=== PATIENT | female | born 2000 | race Caucasian/White ===

== ENCOUNTER 2023-06-21 21:43 | Emergency (ER) | payer OTHER, SELFPAY ==
[2023-06-21 22:03] VITALS: BP 116/67; PULSE 78; RESP 17; TEMP 37; O2SAT 100; BMI 32.2
--- NOTE | 2023-06-22 00:09 | ED.EYEPROB ---
HPI - Eye Problem General Chief complaint: Eye Problems Stated complaint: left eye pain,blurriness Time Seen by Provider: 06/21/23 23:56 Source: patient Mode of arrival: ambulatory Limitations: no limitations History of Present Illness HPI Narrative: L eye pain and redness no lens wear x 24 hours came out of nowhere hurts lateral aspect when she moves it no trauma. tried lubricating drops and warm compress has hx of dry eyes. chief complaint: eye pain and eye redness Onset (ago): day(s) (1) Onset description: gradual Duration: intermittent Location: left eye Eye Symptoms: burning, redness and pain Place: home Mechanism: none Severity: mild If Pain, Quality: burning and aching Associated symptoms: none Treatments Prior to Arrival: OTC eye drops Related Data Previous Rx's Medication Instructions Recorded diclofenac sodium 0.1 % eye drops 1 drp ophthalmic (eye) QID 5 days 06/22/23 #2.5 mL Allergies Allergy/AdvReac Type Severity Reaction Status Date / Time Unable to Assess Allergy Verified 06/22/23 00:13 Review of Systems Review of Systems: Constitutional : No Fever, No Chills, No Fatigue ENT/Mouth : No sore throat, No Rhinorrhea Eyes: pos Eye Pain, No Swelling, pos Redness Cardiovascular : No Chest Pain, No SOB, No Dyspnea on Exertion Respiratory : No Cough, No Sputum Gastrointestinal : No Nausea, No Vomiting, No Diarrhea, No abdominal Pain Musculoskeletal : No joint pain, No Myalgias, No Joint Swelling Skin : No Skin Lesions, No rash Neuro : No Weakness, No Numbness, No Dizziness, positive Headache PMFSH Past Medical History Attestation statement: The following information was validated with the patient. Medical History (Updated 06/22/23 @ 00:23 by Trina Durand DO) No pertinent past medical history Social History Social History (Updated 06/22/23 @ 00:23 by Trina Durand DO) Patient Tobacco Use Status: Never used Tobacco Physical Exam Vital Signs: Vital Signs: Last Vital Signs Temp 98.6 F 06/21/23 22:03 Pulse 78 06/21/23 22:03 Resp 17 06/21/23 22:03 BP 116/67 06/21/23 22:03 Pulse Ox 100 06/21/23 22:03 O2 Del Method Room Air 06/21/23 22:03 BMI result Body Mass Index 32.2 Appearance: Alert. Oriented X3. No acute distress. Eyes: Pupils equal, round and reactive to light. no hyphema, no ciliary flush, L eye lateral episcleritis nodular no drainage she did note she felt like it was blurry for a second but she had a thin layer of film clear/whitish that went away with closing and opening eyes. no periorbital swelling or edema eyes 20/50 ENT: Pharynx normal. Neck: Normal inspection. Neck supple. CVS: Pulses normal. Respiratory: No respiratory distress. Abdomen: Soft and nontender. Skin: Skin warm and dry. Normal skin color. Extremities: No lower extremity edema. Neuro: Oriented X 3. No motor deficit. No sensory deficit. Medical Decision Making Medical Decision Making MDM Narrative: 22 yo female healthy no systemic symptoms onset of L eye pain and irritation redness no lens wear no decrease in vision - exam concerning for episcleritis - will start on lubricating drops and NSAIDs refer to ophtho no concern for abrasion, HSV, glaucoma. Differential Diagnosis Differential Diagnoses: The differential diagnosis associated with the presentation includes conjunctivitis, scleritis, episcleritis Independent Historian Clinical information obtained from an independent historian. History obtained from or confirmed by: Spouse Prescription Management I considered prescription management with: Other (diclofenac drops) Discharge Plan Discharge Clinical Impression: Episcleritis Qualifiers: Laterality: left Qualified Code(s): H15.102 - Unspecified episcleritis, left eye Patient Disposition: Home, Self-Care Instructions: Eye Pain (ED) Additional Instructions: return for worsening pain, loss of vision, fevers, weakness, or any other concerns. you should be seeing an eye doctor in 2 weeks to assess for any underlying eye issues. no contact lens wear. topical lubricating eye drops can help. if you still have pain your can use anti inflammatory drops if you have significant discomfort in the eye - diclofenac prescription. Prescriptions: New diclofenac sodium 0.1 % drops 1 drp ophthalmic (eye) QID 5 Days Qty: 2.5 0RF
[2023-06-22 00:17] VITALS: BP 125/60; PULSE 95; RESP 16; TEMP 36.9; O2SAT 98
--- NOTE | 2023-06-22 00:20 | MHC.EDTECH ---
THIS PCT ASSUMED CARE OF PATIENT AT 2300 ,VITALS SIGN TAKEN AND VISUAL ACUITY CHECK DONE ,PROVIDER AWARE OF RESULT ,PT WAITING FOR DISCHARGED PAPER WORK .
== END 2023-06-22 00:44 | disposition home or self-care (01) ==
PROVIDERS: Emergency Provider Emergency Medicine
DX: H15.102 Unspecified episcleritis, left eye (principal); H57.12 Ocular pain, left eye
CPT/HCPCS: 99283